=== PATIENT | female | born 2000 | race Asian ===

== ENCOUNTER 2021-05-13 20:31 | Emergency (ER) | payer MEDICAID ==
[~2021-05-13] VITALS: Ht 149.9 cm; Wt 86.4 kg
[2021-05-13] MEDS ORDERED: NEOMYCIN/BACITRACIN/POLYMYXIN B OINTMENT PACKET TP ONE (21:30)
[2021-05-13 21:32] VITALS: BP 138/83
== END 2021-05-13 22:15 | disposition home or self-care (01) ==
LOC: EMS 20:38
DX: K13.0 Diseases of lips (principal); J45.909 Unspecified asthma, uncomplicated
CPT/HCPCS: 99283

== ENCOUNTER 2021-12-01 18:42 | Emergency (ER) | payer MEDICAID ==
[~2021-12-01] VITALS: Ht 149.9 cm; Wt 86.4 kg
[2021-12-01 18:46] VITALS: BP 142/94
[2021-12-01] MEDS ORDERED: DIPH25CA85 PO (20:22)
== END 2021-12-01 20:30 | disposition home or self-care (01) ==
LOC: EMS 18:43
DX: R21 Rash and other nonspecific skin eruption (principal); J45.909 Unspecified asthma, uncomplicated
CPT/HCPCS: 99282; Z7502